=== PATIENT | male | born 1955 | race Caucasian/White ===

== ENCOUNTER → 2019-09-24 | Outpatient (CLI) | payer OTHER ==
[2019-09-24 20:33] LABS: Dermato. farinae IgE <0.10 kU/L
[2019-09-24 20:34] LABS: Cat Epith & Dander IgE <0.10 kU/L; Dog Dander IgE <0.10 kU/L
[2019-09-24 20:35] LABS: Alternaria alternata IgE <0.10 kU/L; Aspergillus fumagatus IgE 2.19 kU/L; Cladosporian herbarum IgE <0.10 kU/L; Cockroach IgE <0.10 kU/L
[2019-09-24 20:36] LABS: Birch IgE <0.10 kU/L; Maple (Box Elder) IgE <0.10 kU/L; Oak IgE <0.10 kU/L
[2019-09-24 20:37] LABS: Elm IgE <0.10 kU/L; Ragweed,Common IgE <0.10 kU/L
[2019-09-24 21:54] LABS: Red Top (Bentgrass) IgE <0.10 kU/L
== END | disposition home or self-care (01) ==
LOC: LABWHC1 10:57
PROVIDERS: ATTEND Internal Medicine
DX: J45.909 Unspecified asthma, uncomplicated (principal)
CPT/HCPCS: 36415; 82785; 86003

== ENCOUNTER → 2021-08-24 | Outpatient (CLI) | payer MEDICARE, BC ==
[2021-08-24 15:56] LABS: African American GFR (CKD) >90 (>60 ml/min/1.73 sqM); Blood Urea Nitrogen 18 mg/dL (9-20); Non-African American GFR(CKD) >90 (>60 ml/min/1.73 sqM)
--- NOTE | 2021-08-25 15:26 | CT ---
EXAMINATION TYPE: CT chest w con DATE OF EXAM: 08/24/2021 COMPARISON: No prior CT, chest x-ray 02/26/2021 HISTORY: Lung nodule, pt reports no issues CT DLP: 528.90 mGycm, Automated exposure control for dose reduction was used. CONTRAST: Performed injected with 100 mL of Isovue 300. TECHNIQUE: Axial images were obtained at 5 mm thick sections. Reconstructed images are reviewed on [employer] computer in the coronal plane. FINDINGS: Portion of the thyroid visualized is normal. Is a 0.5 cm nodule posterior right lung. Series 4 image 49. Mild infiltrates at the left lateral lung base. Small pleural-based nodules in the posterior left lung measuring 0.4 cm. Series 4 image 60. No enlarged mediastinal or hilar adenopathy is evident. The ascending aorta diameter at the level o f the main pulmonary artery is 3.5 cm. The main pulmonary artery diameter at the bifurcation is 2.[address] sections are obtained through the upper abdomen. Scattered cysts are within the superior l iver. IMPRESSIONS: 1. Couple of small nonspecific nodules within the bilateral lung zelaya with some mild infiltrate at the left base. Consider follow-up CT chest in 6 months.
== END | disposition home or self-care (01) ==
LOC: RADCTMAIN 15:23
PROVIDERS: ATTEND Internal Medicine
DX: R91.8 Other nonspecific abnormal finding of lung field (principal)
CPT/HCPCS: 82565; 84520; 71260; 36415; Q9967

== ENCOUNTER → 2023-02-28 | Outpatient (CLI) | payer MEDICARE, BC ==
[2023-02-28 10:31] LABS: African American GFR (CKD) >90 (>60 ml/min/1.73 sqM); Blood Urea Nitrogen 16 mg/dL (9-20); Non-African American GFR(CKD) >90 (>60 ml/min/1.73 sqM)
--- NOTE | 2023-02-28 11:55 | CT ---
EXAMINATION TYPE: CT chest w con DATE OF EXAM: 02/28/2023 COMPARISON: 08/24/2021 HISTORY: 67-year-old male R91.1, Lung nodule, allergies. TECHNIQUE: Contiguous axial scanning of the chest after the administration of 100 mL of Isovue 300. Coronal/sagittal reconstructions performed. CT DLP: 743mGycm. Automatic exposure control utilized for a dose reduction. FINDINGS: The heart is normal size without pericardial effusion. Aorta normal caliber with conventional arch vessel branching anatomy. Scattered nonenlarged mediastinal lymph nodes. Some of these are borderline in size 1.1 cm lower righ t paratracheal, 1.1 cm left hilar. Additional scattered nonenlarged lymph nodes are present. Large caliber to the main right and left pulmonary arteries measuring up to 2.7 cm suggesting underly ing pulmonary artery hypertension. Mild emphysematous change. Interval increase in subpleural reticulations in the lower lungs. There is moderate bronchial wall th ickening. Scattered tree-in-bud opacities in the midlungs especially on the right. Scattered subpleur al nodularity right lower lobe measuring up to 7 mm. Some of these are new while a couple are slightl y increased from prior. For example, a 7 mm nodule, axial image 44 previously measuring 5 mm. Some subpleural groundglass change lateral right midlung and focal area of 2.9 x 1.7 cm consolidation in the anterior right upper lobe which is new. 7 mm posterior right upper lobe pulmonary nodule, axial image 24 and coronal image 76 should be reass essed at follow-up. Multiple benign-appearing hepatic cysts measuring up to 2.7 cm. Otherwise, visualized upper abdomen s hows no gross abnormality. Extensive dish mid and lower thoracic spine. IMPRESSION: 1. COPD with mild emphysema. Moderate bronchial wall thickening could represent a prominent component of chronic bronchitis versus superimposed acute bronchitis. There is some scattered interstitial sca rring in the lower lungs which has progressed from 2020. 2. Consolidation measuring 2.9 x 1.7 cm in the right upper lobe. Correlate for focal pneumonia. Follo w up in 3 months to exclude a mass. Some additional scattered groundglass change on the right also aguila ggests infectious/inflammatory foci. 3. Scattered nodules in the right lung, some of which are new and some of which are larger measuring up to 7 mm, particularly right upper lobe image 24 and posterior right base, image 44. These should a lso be reassessed at 3 month follow-up. 4. Pulmonary arterial hypertension.
== END | disposition home or self-care (01) ==
LOC: RADCTMAIN 09:37
PROVIDERS: ATTEND Internal Medicine
DX: J43.9 Emphysema, unspecified (principal); I27.21 Secondary pulmonary arterial hypertension; R91.8 Other nonspecific abnormal finding of lung field; J98.09 Other diseases of bronchus, not elsewhere classified
CPT/HCPCS: 82565; 84520; 71260; 36415; Q9967